=== PATIENT | female | born 1940 | race Caucasian/White ===

== ENCOUNTER → 2017-10-15 | Outpatient (CLI) | payer MEDICARE, BC ==
--- NOTE | 2017-10-15 15:30 | NM ---
EXAMINATION TYPE: NM hepatobiliary w EF DATE OF EXAM: 10/15/2017 COMPARISON: NONE HISTORY: Pain TECHNIQUE: After the intravenous administration of 5 mCi Tc 99m Mebrofenin hepatobiliary scintigraphy is performed. Immediate images post injection. FINDINGS: There is satisfactory initial accumulation of tracer by the liver. The gallbladder is visualized wit hin 8 minutes. The small bowel activity is noted within 34 minutes. At one hour 8 ounces of oral en sure plus is given to mimic CCK and gallbladder ejection fraction is calculated at 77 %, in the david l range. Therefore there is no scintigraphic evidence of cystic or common bile duct obstruction to s uggest acute cholecystitis or gallbladder dyskinesia. IMPRESSION: Exam is within normal limits.
== END | disposition home or self-care (01) ==
LOC: RADNMMAIN 12:24
PROVIDERS: ATTEND Surgery Plastic and Reconstructive Surgery
DX: K44.9 Diaphragmatic hernia without obstruction or gangrene (principal)
CPT/HCPCS: 78226; A9537

== ENCOUNTER → 2017-11-25 | Outpatient (CLI) | payer MEDICARE, BC | END | disposition home or self-care (01) | LOC: LABPAT 11:07 | PROVIDERS: ATTEND Anesthesiology | DX: Z01.818 Encounter for other preprocedural examination (principal); K44.9 Diaphragmatic hernia without obstruction or gangrene | CPT/HCPCS: 93005 ==

== ENCOUNTER 2017-12-04 07:42 | Inpatient (IN) | payer MEDICARE, BC ==
[2017-11-20 11:39] VITALS: BMI 22.1
--- NOTE | 2017-12-03 20:19 | P.GSHP ---
History of Present Illness H&P Date: 12/04/17 CHIEF COMPLAINT: Paraesophageal hiatal hernia with gastroesophageal reflux disease. HISTORY OF PRESENT ILLNESS: The patient is a 77-year-old female who presents with paraesophageal hiatal hernia. She has completed an esophageal manometry including upper endoscopy workup. Now she presents for surgical intervention. PAST MEDICAL HISTORY: Please see list. PAST SURGICAL HISTORY: Please see list. MEDICATIONS: Please see list. ALLERGIES: Please see list. SOCIAL HISTORY: No illicit drug use FAMILY HISTORY: No reports of Crohn disease or ulcerative colitis. REVIEW OF ORGAN SYSTEMS: CONSTITUTIONAL: No reports of fevers or chills. GI: Denies any blood in stools or constipation. PHYSICAL EXAM: VITAL SIGNS: Stable GENERAL: Well-developed pleasant and in no acute distress. HEENT: No scleral icterus. Extraocular movements grossly intact. Moist buccal mucosa. NECK: Supple without lymphadenopathy. CHEST: Unlabored respirations. Equal bilateral excursions. CARDIOVASCULAR: Regular rate and rhythm. Distal 2+ pulses. ABDOMEN: Soft, nondistended. No peritoneal signs. MUSCULOSKELETAL: No clubbing, cyanosis, or edema. SKIN: Well-perfused. Good skin turgor. MANOMETRY: Shows no evidence of achalasia or scleroderma. Presence of EGJ outflow obstruction identified. ASSESSMENT: 1. Diaphragmatic paraesophageal hiatal hernia with severe gastroesophageal reflux disease. PLAN: 1. Recommend proceeding with a robotic paraesophageal hiatal hernia with possible mesh. 2. Benefits and risks of surgical intervention was discussed including possibility of open technique. 3. Inpatient hospitalization recommended of 2 nights 4. DVT prophylaxis. 5. Antibiotic prophylaxis. Past Medical History Past Medical History: GERD/Reflux, Hearing Disorder / Deafness, Hypertension, Osteoarthritis (OA), Skin Disorder, Thyroid Disorder Additional Past Medical History / Comment(s): OCC ITCHY SKIN, VISHNU BACK. VARICOSE VEINS. History of Any Multi-Drug Resistant Organisms: None Reported Past Surgical History: Back Surgery, Bladder Surgery, Hysterectomy Additional Past Surgical History / Comment(s): CATARACTS. PARTIAL HYSTERECTOMY. BLADDER SUSPENSION. COLONOSCOPY, EGD. Past Anesthesia/Blood Transfusion Reactions: No Reported Reaction Smoking Status: Never smoker - Past Family History Mother Family Medical History: Cancer Medications and Allergies Home Medications Medication Instructions Recorded Confirmed Type Acetaminophen [Tylenol Extra 1,000 mg PO Q6H PRN 11/20/17 11/20/17 History Strength] Escitalopram [Lexapro] 20 mg PO DAILY@1200 11/20/17 11/20/17 History Levothyroxine Sodium [Synthroid] 50 mcg PO DAILY 11/20/17 11/20/17 History Lisinopril [Zestril] 2.5 mg PO DAILY@1200 11/20/17 11/20/17 History Multivit with Calcium,Iron,Min 1 each PO DAILY 11/20/17 11/20/17 History [Women's Multivitamin] Ranitidine HCl 150 mg PO BID 11/20/17 11/20/17 History Allergies Allergy/AdvReac Type Severity Reaction Status Date / Time hydrocodone [From Vicodin] AdvReac Severe Nausea Verified 11/20/17 10:53
[~2017-12-04 07:42] MED LIST: HEPARIN SODIUM,PORCINE 5,000 UNIT/ML 1 ML VIAL SQ ONE; ONDANSETRON 4 MG/2 ML VIAL IVP ONE; ceFAZolin IN SWFI 2 GM/20 ML SYRINGE IVP ONE; fentaNYL (PF) 50 MCG/ML 2 ML AMP IV PRN; metroNIDAZOLE-NS PMX 500 MG in SALINE 1 100ML.BAG IVPB ONE
[2017-12-04] MEDS: LIDOCAINE 1% 20 ML VIAL (10MG/ML) FOR IV START INTRADERMA PRN ×2 (08:29→08:39)
[2017-12-04] MEDS: LACTATED RINGERS 1,000 ML IV SCH ×2 (08:29→08:39)
[2017-12-04] MEDS ORDERED: BUPIVACAIN-EPI 0.5%-1:200,000 30 ML VIAL SQ ONE (09:50)
[2017-12-04] MEDS ORDERED: ONDANSETRON 4 MG/2 ML VIAL IVP PRN (10:44)
[2017-12-04] MEDS ORDERED: NALOXONE 0.4 MG/ML 1 ML VIAL IV PRN (10:44)
[2017-12-04] MEDS ORDERED: diphenhydrAMINE 50 MG/ML 1 ML VIAL IVP PRN (10:44)
[2017-12-04] MEDS ORDERED: HYDROmorphone 1 MG/ML 1 ML SYRINGE IVP PRN (10:44)
[2017-12-04] MEDS ORDERED: ACETAMINOPHEN IV (For NPO) 500 MG in EMPTY BAG 1 BAG IVPB ONE (10:44)
--- NOTE | 2017-12-04 10:56 | P.OP ---
Date of Procedure: 12/04/17 Description of Procedure: DESCRIPTION OF PROCEDURE(S): SURGEON: AMAN ABDI MD PREOPERATIVE DIAGNOSES: 1. Gastroesophageal reflux disease. 2. Paraesophageal hiatal hernia, midline. 3. Hypertensive heart disease 4. Depressive disorder POSTOPERATIVE DIAGNOSES: 1. Gastroesophageal reflux disease. 2. Paraesophageal hiatal hernia, midline. 3. Hypertensive heart disease 4. Depressive disorder 5. Duodenal ulcers 6. Recurrent left inguinal hernia OPERATION: 1. Robotic-assisted da Shayna Xi laparoscopic reduction and repair of incarcerated paraesophageal hiatal hernia, 4 x 4 cm, with [place] Biopatch A 7 x 10 cm. 2. Intraoperative esophagogastroduodenoscopy 3. Esophageal dilation 56-[place] bougie ANESTHESIA: General with local anesthetic. ESTIMATED BLOOD LOSS: 5 mL SPECIMENS REMOVED: None. COMPLICATIONS: None. FINDINGS: 1. Duodenal ulcers identified upon upper endoscopy 2. Bougie 56-[place] placed 3. 4 x 4 cm paraesophageal incarcerated diaphragmatic hiatal hernia with moderate dissection into the mediastinum. 4. Intra-abdominal esophageal length over 3 cm obtained 5. [place] Biopatch A onlay mesh placed. 6. Recurrent left inguinal hernia INDICATIONS: The patient is a 77-year-old female who presents with regurgitation, gastroesophageal reflux disease and a symptomatic diaphragmatic hiatal hernia. Preoperative workup including upper endoscopy demonstrated a Hill grade 4 lower esophageal valve. She completed an esophageal manometry. Given the severity of her symptoms, particularly of her symptomatic diaphragmatic hiatal hernia, she had elected for surgical intervention. Benefits and risks including bleeding, infection, recurrence, dysphagia, injury to the lung, need for further surgery was described at length. Informed consent was obtained. DESCRIPTION: The patient was brought into the operating room and placed in supine position. Preoperatively she had received Heparin subcutaneously for DVT prophylaxis. After general induction, the abdomen was prepped and draped in standard sterile fashion. The patient had previously voided prior to coming to the operating room. Ioban draping was placed along the abdomen. A timeout protocol was confirmed with the surgical team, for which the patient's name, procedure to be performed including DVT prophylaxis with bilateral SCDs, and preoperative antibiotics were also confirmed. A robotic da Shayna Xi system was prepped and primed. At 10 cm from the xiphoid to just below the umbilicus, proposed port sites were marked with indelible marker along the left axillary line, left mid-clavicular line with each ports were marked 10 cm from each other. A 5 mm 0 degrees laparoscopic trocar entry was performed along the left upper quadrant. The abdomen was insufflated to 15 mmHg pressure she tolerated well. Diagnostic laparoscopy demonstrated no injury to bowel, viscera, or mesentery. The liver surface was unremarkable. No injury had occurred to the small bowel or viscera. Along the hiatus, a defect was found anteriorly. Recurrent left tubal hernia was confirmed. Next, one 8 mm robotic port was placed along the right upper abdomen. An 8-mm port was were placed along the left lateral abdominal wall. The camera 8-mm port was maintained along the epigastrium via the hernia defect. Another 12 mm port was placed along the left upper abdominal wall after exchanging the 5 mm port. Please note that the ports were placed at least 20 cm away from the target anatomy. Care was taken to check that each robotic arm were safely away from collision with the bed or the patient. At the epigastrium, a median sized Lenora liver retractor was placed under direct visualization with the Iron [employer] placed over the right shoulder of the patient. The additional third robotic arm was placed along the left aspect of the patient. The patient was repositioned in reverse Trendelenburg position at 14-degrees after lowering the bed. The robot was docked above the left side of the patient. Using a grasper for arm 3, a grasper for arm 1, including vessel sealer for arm 2, the robotic system was docked and primed as described. Instruments were interchanged by the assistant infant toddler teacher. I had sat at the console. The gastrohepatic ligament was cleaved using a vessel sealer. Next, the phrenoesophageal ligament was mobilized and the distal esophagus was mobilized circumferentially with care of to the bilateral vagi nerves. The left and right crura was identified. A midline large hiatal hernia and sac was found. Circumferentially, the hernia sac was excised and brought into the peritoneal cavity. Care was taken to avoid any gastrotomy to the upper pole of the stomach. The measured defect was consistent with 4 cm axial length and 4 cm in width. The distal esophagus at least 3 cm was brought into the abdominal cavity. Once the hiatus and crura was dissected, 2-0 VLOC suture was placed initially with a [id number] suture to reapproximate the diaphragmatic hiatus posteriorly. To buttress the repair, a [place] Biopatch A was prepared along the back table as to reinforce the repair as an underlay. The mesh was placed along the crural repair and tagged using horizontal mattress sutures using 2-0 VLOC. I went to the head of the bed to perform intraoperative esophagogastroduodenoscopy. A 56-S[place] bougie was carefully placed along the posterior oropharynx through the hiatus and then removed. An Olympus gastroscope was passed through posterior oropharynx, where the GE junction was found distal to the diaphragmatic hiatus. The intra-abdominal esophageal length obtained during the case was over 3 cm. The stomach was entered. Retroflexion of the scope confirmed a Hill grade 1 lower esophageal valve. Duodenal ulcers along the first portion of duodenum was confirmed without bleeding. The stomach had been desufflated. No evidence of leaks were found either of the mucosal defects of the esophagus or stomach. The hiatal closure was consistent with a 56 [place] bougie as a bougie was passed. This concluded the endoscopic portion of the case. The robot was undocked from the patient. I re-scrubbed into the case. All instruments and pneumoperitoneum were evacuated from the abdominal cavity. Incisions were reapproximated using 4-0 Monocryl in an interrupted subcuticular fashion. Liquid glue was applied to the skin. Local anesthetic was infiltrated in all wounds for postop analgesia. Multiple intra-abdominal films were obtained. At the end of the procedure, needle, sponge, and instrument count was verified correct by the surgical lead. The patient had tolerated the procedure well and was taken to the postanesthesia unit in stable condition. Intraoperative films were reviewed with the patient's family who was pleased with the level of care. Console time 17 minutes
[2017-12-04 11:20] VITALS: RESP 16
[2017-12-04] MEDS ORDERED: 0.9% NACL WITH KCL 20 MEQ/L 1,000 ML IV SCH (12:00)
[2017-12-04] MEDS: DEXAMETHASONE SOD PHOSPHATE 4 MG/ML 1 ML VIAL IV SCH ×2 (12:34→17:29)
[2017-12-04] MEDS: SIMETHICONE 40 MG/0.6 ML DROPS 2,000 MG/30 ML BOTTLE PO SCH ×2 (12:35→17:29)
[2017-12-04] MEDS: HYOSCYAMINE ORAL DROPS 1.875 MG/15 ML BOTTLE PO SCH ×2 (12:35→17:29)
[2017-12-04] MEDS: KETOROLAC 30 MG/ML 1 ML VIAL IVP SCH ×2 (12:35→17:29)
[2017-12-04] MEDS: AMPICILLIN-SULBACTAM 3 GM in SODIUM CHLORIDE 0.9% 100 ML IVPB SCH ×2 (12:35→17:28)
[2017-12-04 14:00] VITALS: TEMP 97.8
[2017-12-04 14:03] VITALS: BP 132/66; PULSE 59
--- NOTE | 2017-12-04 14:48 | FL ---
EXAMINATION TYPE: FL UGI DATE OF EXAM: 12/04/2017 LIMITED UGI-ESOPHAGRAM: CLINICAL HISTORY: Hiatal hernia and epigastric pain and reflux-like symptoms status post Enrique fund oplication surgery earlier today TECHNIQUE: Limited esophagram is performed utilizing 20-50 oz of Isovue-370. A total of 64 seconds o f fluoroscopic time was utilized during procedure. 17 spot images were saved. FINDINGS: The patient swallowed contrast without difficulty or delay. There is some underlying esoph ageal dysmotility with abnormal secondary and tertiary contractions. There is mild delay in flow of c ontrast along the diaphragmatic hiatus into the stomach, there is no evidence of contrast extravasati on to suggest leak. No persistent hiatal hernia is seen. Patient remains asymptomatic. Small amount o f free air under right hemidiaphragm is presumed postsurgical. IMPRESSION: No evidence of leak or significant obstruction status post Enrique fundoplication surgery earlier today.
--- NOTE | 2017-12-04 17:54 | P.DS ---
Providers Date of admission: 12/04/17 07:42 Expected date of discharge: 12/04/17 Attending physician: Meera Mehta Primary care physician: Bruno Solitario - Discharge Diagnosis(es) (1) Paraesophageal hiatal hernia Current Visit: Yes Status: Acute (2) Reflux esophagitis Current Visit: Yes Status: Acute (3) Hypertensive heart disease Current Visit: Yes Status: Acute Hospital Course: POSTOPERATIVE DIAGNOSES: 1. Gastroesophageal reflux disease. 2. Paraesophageal hiatal hernia, midline. 3. Hypertensive heart disease 4. Depressive disorder 5. Duodenal ulcers 6. Recurrent left inguinal hernia The patient is a 77-year-old female who had symptomatic paraesophageal hiatal hernia including regurgitation. She underwent a robotic hiatal hernia repair with mesh. Postprocedure she had done well. Her esophagram was negative for leaks. Discharge instructions including discharge diet were reviewed in detail. Patient was cleared for discharge. Pertinent Studies: Esophagram negative for leaks Procedures: OPERATION: 1. Robotic-assisted da Shayna Xi laparoscopic reduction and repair of incarcerated paraesophageal hiatal hernia, 4 x 4 cm, with [place] Biopatch A 7 x 10 cm. 2. Intraoperative esophagogastroduodenoscopy 3. Esophageal dilation 56-[place] bougie ANESTHESIA: General with local anesthetic. ESTIMATED BLOOD LOSS: 5 mL SPECIMENS REMOVED: None. COMPLICATIONS: None. FINDINGS: 1. Duodenal ulcers identified upon upper endoscopy 2. Bougie 56-[place] placed 3. 4 x 4 cm paraesophageal incarcerated diaphragmatic hiatal hernia with moderate dissection into the mediastinum. 4. Intra-abdominal esophageal length over 3 cm obtained 5. [place] Biopatch A onlay mesh placed. 6. Recurrent left inguinal hernia Patient Condition at Discharge: Stable Plan - Discharge Summary Discharge Rx Participant: Yes New Discharge Prescriptions: New Acetaminophen Oral Susp (Peds) [Tylenol Oral Susp For Peds (Grape)] 500 mg PO Q6H #480 bottle Bisacodyl [Dulcolax] 5 mg PO DAILY PRN #10 tablet.dr PRN Reason: Constipation Ondansetron Odt [Zofran Odt] 4 mg PO Q8HR PRN #9 tab PRN Reason: Nausea Simethicone 40 mg/0.6 ml Drops [Mylicon Drops] 40 mg PO PCHS PRN #30 ml PRN Reason: Gas Continue Lisinopril [Zestril] 2.5 mg PO DAILY@1200 Levothyroxine Sodium [Synthroid] 50 mcg PO DAILY Escitalopram [Lexapro] 20 mg PO DAILY@1200 Acetaminophen [Tylenol Extra Strength] 1,000 mg PO Q6H PRN PRN Reason: Pain Discontinued Multivit with Calcium,Iron,Min [Women's Multivitamin] 1 tab PO DAILY Ranitidine HCl 150 mg PO BID Discharge Medication List Acetaminophen [Tylenol Extra Strength] 1,000 mg PO Q6H PRN 11/20/17 [History] Escitalopram [Lexapro] 20 mg PO DAILY@1200 11/20/17 [History] Levothyroxine Sodium [Synthroid] 50 mcg PO DAILY 11/20/17 [History] Lisinopril [Zestril] 2.5 mg PO DAILY@1200 11/20/17 [History] Acetaminophen Oral Susp (Peds) [Tylenol Oral Susp For Peds (Grape)] 500 mg PO Q6H #480 bottle 12/04/17 [Rx] Bisacodyl [Dulcolax] 5 mg PO DAILY PRN #10 tablet.dr 12/04/17 [Rx] Ondansetron Odt [Zofran Odt] 4 mg PO Q8HR PRN #9 tab 12/04/17 [Rx] Simethicone 40 mg/0.6 ml Drops [Mylicon Drops] 40 mg PO PCHS PRN #30 ml [Rx] Follow up Appointment(s)/Referral(s): Meera Mehta MD [STAFF PHYSICIAN] - 12/08/17 (Call to confirm time) Patient Instructions/Handouts: Laparoscopic Hiatal Hernia Repair (DC) Activity/Diet/Wound Care/Special Instructions: No lifting over 4 pounds in 4 weeks. No carbonated beverages. No straws. Liquid diet only until seen in the office. Protein shakes 3 times daily. May shower. No bath tub soaks. Discharge Disposition: HOME SELF-CARE
[2017-12-05] MEDS ORDERED: 0.9% NACL WITH KCL 20 MEQ/L 1,000 ML IV SCH (08:00)
[2017-12-05] MEDS ORDERED: ENOXAPARIN 30 MG/0.3 ML SYRINGE SQ SCH (09:00)
[2017-12-05] MEDS ORDERED: PANTOPRAZOLE 40 MG/10 ML VIAL IV SCH (09:00)
[2017-12-06] MEDS ORDERED: BISACODYL 5 MG TABLET.DR PO PRN (08:00)
== END 2017-12-04 19:11 | disposition home or self-care (01) | DRG 328 ==
LOC: 2ORMAIN 07:42 → 3SUR 11:02
PROVIDERS: ADMIT Surgery Plastic and Reconstructive Surgery; ATTEND Surgery Plastic and Reconstructive Surgery
PROC: 0D754ZZ Dilation of Esophagus, Percutaneous Endoscopic Approach (ICD-10-PCS; 2017-12-04)
PROC: 8E0W4CZ Robotic Assisted Procedure of Trunk Region, Percutaneous Endoscopic Approach (ICD-10-PCS; 2017-12-04)
PROC: 0DJ08ZZ Inspection of Upper Intestinal Tract, Via Natural or Artificial Opening Endoscopic (ICD-10-PCS; 2017-12-04)
PROC: 0BUT4JZ Supplement Diaphragm with Synthetic Substitute, Percutaneous Endoscopic Approach (ICD-10-PCS; principal; 2017-12-04 09:25)
DX: K44.9 Diaphragmatic hernia without obstruction or gangrene (principal); F32.9 Major depressive disorder, single episode, unspecified; H91.90 Unspecified hearing loss, unspecified ear; I11.9 Hypertensive heart disease without heart failure; K21.0 Gastro-esophageal reflux disease with esophagitis; K26.9 Duodenal ulcer, unspecified as acute or chronic, without hemorrhage or perforation; K40.91 Unilateral inguinal hernia, without obstruction or gangrene, recurrent; I83.90 Asymptomatic varicose veins of unspecified lower extremity; M19.90 Unspecified osteoarthritis, unspecified site; E07.9 Disorder of thyroid, unspecified; Z90.710 Acquired absence of both cervix and uterus; Z79.899 Other long term (current) drug therapy; Z98.49 Cataract extraction status, unspecified eye; Z96.1 Presence of intraocular lens; Z88.5 Allergy status to narcotic agent; Z80.9 Family history of malignant neoplasm, unspecified
CPT/HCPCS: 36415; 74240; 86850; 86900; 86901

== ENCOUNTER 2018-01-21 11:41 | Day surgery (SDC) | payer MEDICARE, BC ==
[2018-01-15 10:17] VITALS: BMI 20.7
[~2018-01-21 11:41] MED LIST changes: +DEXAMETHASONE SOD PHOSPHATE 10 MG/ML 1 ML VIAL IV ONE; +HYDROmorphone 0.5 MG/0.5 ML SYRINGE IVP PRN; +LACTATED RINGERS 1,000 ML IV SCH; +LIDOCAINE 1% 20 ML VIAL (10MG/ML) FOR IV START INTRADERMA PRN; -fentaNYL (PF) 50 MCG/ML 2 ML AMP IV PRN; -metroNIDAZOLE-NS PMX 500 MG in SALINE 1 100ML.BAG IVPB ONE
[2018-01-21] MEDS ORDERED: INDOCYANINE GREEN 25 MG VIAL IV STA (13:23)
--- NOTE | 2018-01-21 13:24 | P.GSHP ---
History of Present Illness H&P Date: 01/21/18 CHIEF COMPLAINT: Cholecystitis HISTORY OF PRESENT ILLNESS: The patient is a 77-year-old female who presents with history of epigastric including right upper quadrant abdominal pain. She underwent diagnostic studies for her gallbladder. Separately her clinical picture was consistent with cholecystitis. Now she presents for surgical intervention. PAST MEDICAL HISTORY: Please see list PAST SURGICAL HISTORY: Please see list MEDICATIONS: Please see list ALLERGIES: Denies. SOCIAL HISTORY: No illicit drug use or recent tobacco use FAMILY HISTORY: Pertinent for gallbladder disease REVIEW OF ORGAN SYSTEMS: CONSTITUTIONAL: No reports of fevers or chills. HEENT: Denies any troubles with the vision or hearing. ENDOCRINE: No reports of hypothyroidism. No diabetes. RESPIRATORY: No recent pneumonias. PHYSICAL EXAM: VITAL SIGNS: Afebrile vital signs stable GENERAL: Well-developed pleasant in no acute distress. HEENT: No scleral icterus. Extraocular movements grossly intact. Moist buccal mucosa. NECK: Supple without lymphadenopathy. CHEST: Unlabored respirations. Equal bilateral excursions. CARDIOVASCULAR: Regular rate regular rhythm rhythm. Distal 2+ pulses. ABDOMEN: Soft, nondistended. Tender along the epigastrium and right upper quadrant. MUSCULOSKELETAL: No clubbing, cyanosis, or edema. NEURO: Cranial nerves II to XII within normal limits. No focal or lateralizing signs. PSYCH: Alert and oriented to person, place and time. SKIN: Well-perfused good skin turgor. ASSESSMENT: 1. Epigastric and right upper quadrant abdominal pain 2. Chronic cholecystitis PLAN: 1. Will need a robotic cholecystectomy possible open. Benefits and risks were described. 2. Heparin for DVT prophylaxis 5000 units. 3. Antibiotic prophylaxis. Past Medical History Past Medical History: GERD/Reflux, Hearing Disorder / Deafness, Hypertension, Osteoarthritis (OA), Skin Disorder, Thyroid Disorder Additional Past Medical History / Comment(s): VARICOSE VEINS., HEARING AIDS., STATES SHE WAKES UP AT NIGHT BURPING. History of Any Multi-Drug Resistant Organisms: None Reported Past Surgical History: Back Surgery, Bladder Surgery, Hysterectomy Additional Past Surgical History / Comment(s): CATARACTS. PARTIAL HYSTERECTOMY. BLADDER SUSPENSION. COLONOSCOPY, EGD., HIATAL HERNIA REPAIR () Past Anesthesia/Blood Transfusion Reactions: No Reported Reaction Past Psychological History: Anxiety Smoking Status: Never smoker Past Alcohol Use History: Rare Past Drug Use History: None Reported - Past Family History Mother Family Medical History: Cancer Medications and Allergies Home Medications Medication Instructions Recorded Confirmed Type Escitalopram [Lexapro] 20 mg PO W/LUNCH 11/20/17 01/21/18 History Levothyroxine Sodium [Synthroid] 50 mcg PO DAILY 11/20/17 01/21/18 History Lisinopril [Zestril] 2.5 mg PO W/LUNCH 11/20/17 01/21/18 History Absgg-X-Fbhploqrclfst [Beano] 300 unit PO DIRECTED PRN 01/15/18 01/21/18 History Multivitamins, Thera [Multivitamin 1 tab PO DAILY 01/15/18 01/21/18 History (formulary)] Simethicone [Gas-X] 125 mg PO PC-TID 01/15/18 01/21/18 History Allergies Allergy/AdvReac Type Severity Reaction Status Date / Time hydrocodone [From Vicodin] AdvReac Severe Nausea Verified 01/21/18 12:41 Surgical - Exam Vital Signs Temp Pulse Resp BP Pulse Ox 98.1 F 65 16 165/72 98 01/21/18 12:38 01/21/18 12:38 01/21/18 12:38 01/21/18 12:38 01/21/18 12:38
[2018-01-21] MEDS ORDERED: fentaNYL (PF) 50 MCG/ML 2 ML AMP ONE (15:17)
[2018-01-21] MEDS ORDERED: PROPOFOL 10 MG/ML 20 ML VIAL IV ONE (15:17)
[2018-01-21] MEDS ORDERED: LIDOCAINE 1% INJ 10MG/ML (20 ML MDV) ONE (15:17)
[2018-01-21] MEDS ORDERED: ROCURONIUM BROMIDE 10 MG/ML 10 ML VIAL IV ONE (15:17)
[2018-01-21] MEDS ORDERED: NEOSTIGMINE 1 MG/ML 10 ML VIAL ONE (15:17)
[2018-01-21] MEDS ORDERED: MIDAZOLAM 2 MG/2 ML VIAL ONE (15:17)
[2018-01-21] MEDS ORDERED: SUCCINYLCHOLINE CHLORIDE 100 MG/5 ML SYR IV ONE (15:17)
[2018-01-21] MEDS ORDERED: GLYCOPYRROLATE 0.2 MG/ML 2 ML VIAL ONE (15:17)
[2018-01-21] MEDS ORDERED: BUPIVACAIN-EPI 0.25%-1:200,000 30 ML VIAL SQ ONE (15:44)
[2018-01-21 16:34] VITALS: TEMP 97.9
[2018-01-21 16:41] VITALS: RESP 16
--- NOTE | 2018-01-21 16:43 | P.OP ---
Date of Procedure: 01/21/18 Description of Procedure: SURGEON: AMAN ABDI MD PREOPERATIVE DIAGNOSES: 1. Chronic cholecystitis. 2. Gastroesophageal reflux disease. 3. Depressive disorder 4. Hypertensive heart disease POSTOPERATIVE DIAGNOSES: 1. Chronic cholecystitis. 2. Gastroesophageal reflux disease. 3. Depressive disorder 4. Hypertensive heart disease OPERATION: Robotic-assisted laparoscopic cholecystectomy, multiport ESTIMATED BLOOD LOSS: 5 mL. SPECIMENS REMOVED: Gallbladder. COMPLICATIONS: None. OPERATIVE FINDINGS: 1. Chronic cholecystitis 2. Console time 6 minutes INDICATIONS: The patient is a 77-year-old female who presents with chronic cholelcystitis. Surgical intervention with a laparoscopic cholecystectomy was described at length including injury to the biliary tree, bleeding, infection, need for further surgery. Informed consent was obtained. Robotic assisted laparoscopic approach was described. Benefits and risks of the procedure including but not limited to bleeding, infection, injury to the biliary tree was described. Informed consent was obtained. DESCRIPTION OF PROCEDURE: Patient was brought to the operating room, placed in supine position. After general induction, the abdomen had been prepped and draped in standard sterile fashion. The robotic da Shayna SI system was primed. After a timeout protocol was performed, the patient had been prepped and draped in standard sterile fashion. The robot was docked along the right lateral abdomen. The patient was repositioned in reverse Trendelenburg position. Please note prior to docking of the robot; however, a 5 mm 0 degrees laparoscopic trocar entry was performed along the left upper quadrant. Next, two 8 mm robotic ports were placed along the right upper abdomen. The camera 12-mm port was maintained along the epigastrium. Another 8 mm port was placed along the left upper abdominal wall after exchanging the 5 mm port. Please note that the ports were placed at least 10 to 15 cm away from the target anatomy of the gallbladder. Using a grasper for arm 3, a grasper for arm 2, including hook cautery for arm 1 , the robotic system was docked and primed as described. Instruments were interchanged by the assistant track and field coach including hook cautery, Bovie cautery scissors and clip appliers. I had sat at the console. Adhesions were identified along the infundibulum of the gallbladder and addressed using hook cautery including blunt dissection with a long forceps grasper. The gallbladder fundus was retracted over the dome of the liver. Initial attention was brought to the infundibulum which was gently retracted in the inferior lateral approach. Using a grasper, the cystic duct including the cystic artery was carefully skeletonized. Using a clip tar heater 2 large clips were placed proximally, and 1 clip was placed distally along the cystic duct and then cauterized with the cautery. Again care was taken to avoid any injury to the biliary tree as the common bile duct was clearly visualized during this portion of dissection. Next, the cystic artery was cauterized. Electro-Bovie cautery was used to remove the gallbladder from the hepatic fossa without decompression of the gallbladder. Hemostasis was checked and found to be adequate. The robot was undocked. I re-scrubbed into the case. Using a 10 mm Endo Catch bag via the 12 mm port, the specimen was removed from the abdominal cavity. The 12 mm port site was oversewn using 0 Vicryl including a Pablo Franklin as well. All pneumoperitoneum instruments were evacuated from the abdominal cavity. The incisions were reapproximated using 4-0 Monocryl in an interrupted subcuticular fashion. Please note along the trocar sites, local anesthetic was placed as a field block prior to insertion of all instruments. Optifoam surgical dressing was placed over the gallbladder extraction site including dilute hydrogen peroxide was used to wash the skin. Exofin glue was applied to the skin. At the end of the procedure needle, sponge, and instrument count had been verified correct by the surgical asst. The patient was transferred to postanesthesia care unit in stable condition. Intraoperative films were shared with the patient's family who were very pleased with the level of care. Plan - Discharge Summary New Discharge Prescriptions: No Action Lisinopril [Zestril] 2.5 mg PO W/LUNCH Levothyroxine Sodium [Synthroid] 50 mcg PO DAILY Escitalopram [Lexapro] 20 mg PO W/LUNCH Multivitamins, Thera [Multivitamin (formulary)] 1 tab PO DAILY Simethicone [Gas-X] 125 mg PO PC-TID Srewb-Y-Zdbzhqhwcrtfa [Beano] 300 unit PO DIRECTED PRN PRN Reason: gas Discharge Medication List Escitalopram [Lexapro] 20 mg PO W/LUNCH 11/20/17 [History] Levothyroxine Sodium [Synthroid] 50 mcg PO DAILY 11/20/17 [History] Lisinopril [Zestril] 2.5 mg PO W/LUNCH 11/20/17 [History] Dlzuq-B-Mvyfcaukavssd [Beano] 300 unit PO DIRECTED PRN 01/15/18 [History] Multivitamins, Thera [Multivitamin (formulary)] 1 tab PO DAILY 01/15/18 [History ] Simethicone [Gas-X] 125 mg PO PC-TID 01/15/18 [History]
[2018-01-21] MEDS ORDERED: LACTATED RINGERS 1,000 ML IV ONE (17:08)
[2018-01-21] MEDS ORDERED: KETOROLAC 30 MG/ML 1 ML VIAL IVP ONE (18:05)
[2018-01-21] MEDS ORDERED: IBUPROFEN 200 MG TAB PO ONE (18:05)
[2018-01-21 18:53] VITALS: BP 147/75; PULSE 76
== END 2018-01-21 19:42 | disposition home or self-care (01) ==
LOC: OR 11:41
PROVIDERS: ATTEND Surgery Plastic and Reconstructive Surgery
DX: K81.1 Chronic cholecystitis (principal); K21.9 Gastro-esophageal reflux disease without esophagitis; H91.90 Unspecified hearing loss, unspecified ear; M19.90 Unspecified osteoarthritis, unspecified site; I11.9 Hypertensive heart disease without heart failure; E07.9 Disorder of thyroid, unspecified; F32.9 Major depressive disorder, single episode, unspecified; F41.9 Anxiety disorder, unspecified; Z79.890 Hormone replacement therapy; Z79.899 Other long term (current) drug therapy; Z88.5 Allergy status to narcotic agent
CPT/HCPCS: 88304; 47562; J2250; J1644; J1100; J2710; J2405; J2001; J3010; J0330; J2704; J0690

== ENCOUNTER 2024-11-10 14:18 | Emergency (ER) | payer MEDICARE, BC ==
[2024-11-10 15:36] LABS: Basophils # (A) 0.04 10*3/uL (0.00-0.10); Basophils % (A) 0.6 %; Eosinophils # (A) 0.27 10*3/uL (0.04-0.35); Eosinophils % (A) 4.1 %; HCT 33.7 % (37.2-46.3); HGB 11.9 g/dL (12.0-15.0); Lymphocytes # (A) 1.42 10*3/uL (0.90-5.00); Lymphocytes % (A) 21.5 %; MCH 31.7 pg (27.0-32.0); MCHC 35.3 g/dL (32.0-37.0); MCV 89.9 fL (80.0-97.0); Monocytes # (A) 0.55 10*3/uL (0.20-1.00); Monocytes % (A) 8.3 %; Neutrophils # (A) 4.32 10*3/uL (1.80-7.70); Neutrophils % (A) 65.2 %; Platelet Count 232 10*3/uL (140-440); RBC 3.75 10*6/uL (4.10-5.20); RDW 12.2 % (11.5-14.5); WBC 6.62 10*3/uL (4.50-10.00)
--- NOTE | 2024-11-10 15:56 | ED ---
General Adult HPI - General Chief complaint: Nausea/Vomiting/Diarrhea Stated complaint: Weakness/Syncope Time Seen by Provider: 11/10/24 15:04 Source: patient, RN notes reviewed, old records reviewed Mode of arrival: ambulatory Limitations: no limitations - History of Present Illness Initial comments: 84-year-old female presents for evaluation of lightheadedness, near syncope. Patient had eaten lunch and soon after felt some crampy abdominal pain followed by diarrhea times several episodes. When she stood from the toilet she felt quite lightheaded and states she nearly passed out. She did not completely lose consciousness. There was no chest pain or dyspnea. Patient states she feels completely better at the time my evaluation. No vomiting. No nausea. No chest pain. - Related Data Home Medications Medication Instructions Recorded Confirmed Escitalopram [Lexapro] 20 mg PO W/LUNCH 11/20/17 01/21/18 Levothyroxine Sodium [Synthroid] 50 mcg PO DAILY 11/20/17 01/21/18 lisinopriL [Zestril] 2.5 mg PO W/LUNCH 11/20/17 01/21/18 Vxkxz-A-Ximalprejeyyk [Beano] 300 unit PO DIRECTED PRN 01/15/18 01/21/18 Multivitamins, Thera [Multivitamin 1 tab PO DAILY 01/15/18 01/21/18 (formulary)] Simethicone [Gas-X] 125 mg PO PC-TID 01/15/18 01/21/18 Previous Rx's Medication Instructions Recorded Ibuprofen [Motrin] 600 mg PO Q8HR PRN #20 tab 01/21/18 Allergies Allergy/AdvReac Type Severity Reaction Status Date / Time hydrocodone [From Vicodin] AdvReac Severe Nausea Verified 01/21/18 12:41 Review of Systems ROS Statement: Those systems with pertinent positive or pertinent negative responses have been documented in the HPI. ROS Other: All systems not noted in ROS Statement are negative. Past Medical History Past Medical History: GERD/Reflux, Hearing Disorder / Deafness, Hypertension, Osteoarthritis (OA), Skin Disorder, Thyroid Disorder Additional Past Medical History / Comment(s): VARICOSE VEINS., HEARING AIDS., STATES SHE WAKES UP AT NIGHT BURPING. History of Any Multi-Drug Resistant Organisms: None Reported Past Surgical History: Back Surgery, Bladder Surgery, Hysterectomy Additional Past Surgical History / Comment(s): CATARACTS. PARTIAL HYSTERECTOMY. BLADDER SUSPENSION. COLONOSCOPY, EGD., HIATAL HERNIA REPAIR (12/04/17) Past Anesthesia/Blood Transfusion Reactions: No Reported Reaction Past Psychological History: Anxiety Smoking Status: Never smoker Past Alcohol Use History: Rare Past Drug Use History: None Reported - Past Family History Mother Family Medical History: Cancer General Exam Limitations: no limitations General appearance: alert, in no apparent distress Head exam: Present: atraumatic, normocephalic Eye exam: Present: normal appearance, PERRL ENT exam: Present: normal exam Neck exam: Present: normal inspection. Absent: tenderness, meningismus Respiratory exam: Present: normal lung sounds bilaterally. Absent: respiratory distress, wheezes Cardiovascular Exam: Present: regular rate, normal rhythm GI/Abdominal exam: Present: soft. Absent: distended, tenderness, guarding Course Vital Signs 11/10/24 11/10/24 14:45 16:20 Temperature 98.0 F 97.4 F L Pulse Rate 54 L 58 L Respiratory 18 15 Rate Blood Pressure 162/67 142/56 O2 Sat by Pulse 99 99 Oximetry Medical Decision Making - Medical Decision Making Was pt. sent in by a medical professional or institution (, PA, [employer], urgent care, hospital, or residential...) When possible be specific @ -No Did you speak to anyone other than the patient for history (EMS, parent, family, police, friend...)? What history was obtained from this source @ -No Did you review nursing and triage notes (agree or disagree)? Why? @ -I reviewed and agree with nursing and triage notes Were old charts reviewed (outside hosp., previous admission, EMS record, old EKG, old radiological studies, urgent care reports/EKG's, residential records)? Report findings @ -No old charts were reviewed Differential Syncope: Valvular disease, hypertrophic cardiomyopathy, pulmonary embolism, tamponade, ta chycardia, bradycardia, CO, hypovolemia, hemorrhage, dissection, anemia, intracranial hemorrhage, seizure, hypoglycemia, carbon monoxide poisoning, this is not meant to be an all-inclusive list. EKG interpreted by me (3pts min.). @Sinus bradycardia left axis deviation with a rate of 55, MN interval 186, QRS duration 110, QTc [address] segment elevation. X-rays interpreted by me (1pt min.). @ -None done CT interpreted by me (1pt min.). @ -None done U/S interpreted by me (1pt. min.). @ -None done What testing was considered but not performed or refused? (CT, X-rays, U/S, labs)? Why? @ -None What meds were considered but not given or refused? Why? @ -None Did you discuss the management of the patient with other professionals (professionals i.e. , PA, [employer], lab, RT, psych nurse, social media intern, radiagraph operator, teacher, command and control officer, gearcase assembler)? Give summary @ -No Was smoking cessation discussed for >3mins.? @ -No Was critical care preformed (if so, how long)? @ -No Were there social determinants of health that impacted care today? How? (Homelessness, low income, unemployed, alcoholism, drug addiction, transportation, low edu. Level, literacy, decrease access to med. care, custodial, r ehab)? @ -No Was there de-escalation of care discussed even if they declined (Discuss DNR or withdrawal of care, Hospice)? DNR status @ -No What co-morbidities impacted this encounter? (DM, HTN, Smoking, COPD, CAD, Cancer, CVA, ARF, Chemo, Hep., AIDS, mental health diagnosis, sleep apnea, morbid obesity)? @ -None Was patient admitted / discharged? Hospital course, mention meds given and route, prescriptions, significant lab abnormalities, going to OR and other pertinent info. @ 84-year-old female presenting after an episode of lightheadedness, near syncope after standing while having diarrhea. Patient feels completely better at the time my evaluation. No nausea vomiting. No chest pain. No abdominal pain. Patient has EKG showing sinus rhythm. I did perform laboratory testing which reveals normal CBC, mild hyponatremia at 130. Patient will inform her primary care provider of the sodium and have this rechecked as an outpatient. On reevaluation the patient feels completely normal and is eager for discharge. Return parameters discussed. Undiagnosed new problem with uncertain prognosis? @ -No Drug Therapy requiring intensive monitoring for toxicity (Heparin, Nitro, Insulin, Cardizem)? @ -No Were any procedures done? @ -No Diagnosis/symptom? @ -Diarrhea, near syncope] Acute, or Chronic, or Acute on Chronic? @ -Acute Uncomplicated (without systemic symptoms) or Complicated (systemic symptoms)? @ -Default Side effects of treatment? @ -No Exacerbation, Progression, or Severe Exacerbation? @ -No Poses a threat to life or bodily function? How? (Chest pain, USA, CO, pneumonia, PE, COPD, DKA, ARF, appy, cholecystitis, CVA, Diverticulitis, Homicidal, Suicidal, threat to staff... and all critical care pts) @ -No - Lab Data Result diagrams: 11/10/24 15:30 11/10/24 15:30 Lab Results 11/10/24 11/10/24 Range/Units 15:30 15:30 WBC 6.62 (4.50-10.00) 10*3/uL RBC 3.75 L (4.10-5.20) 10*6/uL Hgb 11.9 L (12.0-15.0) g/dL Hct 33.7 L (37.2-46.3) % MCV 89.9 (80.0-97.0) fL MCH 31.7 (27.0-32.0) pg MCHC 35.3 (32.0-37.0) g/dL Plt Count 232 (140-440) 10*3/uL MPV 9.4 L (9.5-12.2) fL Immature Gran % (Auto) 0.3 % Neutrophils % 65.2 % Lymphocytes % 21.5 % Monocytes % 8.3 % Eosinophils % 4.1 % Basophils % 0.6 % Immature Gran # 0.02 (0.00-0.04) 10*3/uL Neutrophils # 4.32 (1.80-7.70) 10*3/uL Lymphocytes # 1.42 (0.90-5.00) 10*3/uL Monocytes # 0.55 (0.20-1.00) 10*3/uL Eosinophils # 0.27 (0.04-0.35) 10*3/uL Basophils # 0.04 (0.00-0.10) 10*3/uL Sodium 130 L (137-145) mmol/L Potassium 3.7 (3.5-5.1) mmol/L Chloride 95 L (98-107) mmol/L Carbon Dioxide 24 (22-30) mmol/L Anion Gap 11 mmol/L BUN 18 H (7-17) mg/dL Creatinine 0.67 (0.52-1.04) mg/dL Est GFR (CKD-EPI)AfAm >90 (>60 ml/min/1.73 sqM) Est GFR (CKD-EPI)NonAf 80 (>60 ml/min/1.73 sqM) Glucose 118 H (74-99) mg/dL Calcium 9.7 (8.4-10.2) mg/dL Total Bilirubin 1.1 (0.2-1.3) mg/dL AST 32 (14-36) U/L ALT 20 (4-34) U/L Alkaline Phosphatase 87 (38-126) U/L Total Protein 7.0 (6.3-8.2) g/dL Albumin 4.4 (3.5-5.0) g/dL Disposition Clinical Impression: Diarrhea, Near syncope Disposition: HOME SELF-CARE Condition: Fair Instructions (If sedation given, give patient instructions): Acute Diarrhea (ED), Near Syncope (ED) Additional Instructions: Drink plenty of fluids, stand up slowly. Please follow-up with your primary care provider closely and return to the emergency department if needed. Is patient prescribed a controlled substance at d/c from ED?: No Referrals: Nonstaff,Physician [Primary Care Provider] - 1-2 days Time of Disposition: 16:44
[2024-11-10 16:02] LABS: ALT 20 U/L (4-34); AST 32 U/L (14-36); African American GFR (CKD) >90 (>60 ml/min/1.73 sqM); Albumin 4.4 g/dL (3.5-5.0); Alkaline Phosphatase 87 U/L (38-126); Anion Gap 11 mmol/L; Blood Urea Nitrogen 18 mg/dL (7-17); Calcium 9.7 mg/dL (8.4-10.2); Carbon Dioxide 24 mmol/L (22-30); Chloride 95 mmol/L (98-107); Glucose 118 mg/dL (74-99); Non-African American GFR(CKD) 80 (>60 ml/min/1.73 sqM); Potassium 3.7 mmol/L (3.5-5.1); Sodium 130 mmol/L (137-145); Total Protein 7.0 g/dL (6.3-8.2)
[2024-11-10] MEDS: SODIUM CHLORIDE 0.9% 500 ML 500 ML IV ONE (16:18)
[2024-11-10 17:13] VITALS: BP 153/61; PULSE 55; RESP 17; TEMP 97.9
== END 2024-11-10 17:11 | disposition home or self-care (01) ==
LOC: EC 14:18
DX: R19.7 Diarrhea, unspecified (principal); R55 Syncope and collapse; Z88.5 Allergy status to narcotic agent
CPT/HCPCS: 36415; 80053; 85025; 93005; 96360; 99285